=== PATIENT | male | born 1995 | race African-American/Black ===

== ENCOUNTER 2022-06-30 22:05 | Emergency (ER) | payer OTHER ==
[~2022-06-30] VITALS: Ht 177.8 cm; Wt 80.0 kg
[2022-06-30 22:26] VITALS: BP 134/85
[2022-07-01] MEDS ORDERED: ACYCLOVIR 400 MG TABLET PO ONE (00:45)
[2022-07-01] MEDS ORDERED: AZITHROMYCIN 500 MG TABLET PO ONE (00:45)
[2022-07-01] MEDS ORDERED: ACYC200C31 MT (00:47)
== END 2022-07-01 01:12 | disposition home or self-care (01) ==
LOC: ER 22:05
DX: R21 Rash and other nonspecific skin eruption (principal); M79.89 Other specified soft tissue disorders; Z87.891 Personal history of nicotine dependence; Z88.2 Allergy status to sulfonamides
CPT/HCPCS: 99283